=== PATIENT | female | born 1970 | race Caucasian/White ===

== ENCOUNTER 2023-02-09 00:39 | Emergency (ER) | payer SELFPAY ==
[2023-02-09] MEDS ORDERED: predniSONE 20 MG TAB ONE (01:39)
[2023-02-09] MEDS ORDERED: Ketorolac Tromethamine 30 MG/ML VIAL ONE (01:39)
== END 2023-02-09 03:10 | disposition home or self-care (01) ==
LOC: CSHERS 00:39
DX: M54.9 Dorsalgia, unspecified (principal); G89.29 Other chronic pain; I10 Essential (primary) hypertension
CPT/HCPCS: 72072; 72100; 93005; 96374; J1885; J7512

== ENCOUNTER 2023-10-01 23:10 | Inpatient (IN) | payer OTHER, SELFPAY ==
[2023-10-01] MEDS ORDERED: Nitroglycerin 0.4 MG TAB 1 EACH ONE (23:34)
[2023-10-01] MEDS ORDERED: Aspirin 81 mg Enteric Coated Tablet ONE (23:34)
[2023-10-01 23:54] LABS: Hemoglobin 15.2 g/dL (12.0-15.5); Mean Corpuscular HGB CONC 36.2 g/dL (32.0-36.0); Mean Corpuscular Hemoglobin 31.2 pg (27.0-33.0); Mean Corpuscular Volume 86.2 fL (81.6-98.3); Mean Platelet Volume 9.7 fL (7.4-10.4); Platelet Count 224 10x3/uL (150-450); RBC Distribution Width 11.5 % (11.5-14.5); Red Blood Cell (RBC) Count 4.87 10x6/uL (3.90-5.03); White Blood Cell (WBC) Count 6.3 10x3/uL (3.5-10.5)
[2023-10-01 23:55] LABS: MDiff Complete? YES
[2023-10-01 23:56] LABS: ALT (SGPT) 24 U/L (8-55); AST (SGOT) 26 U/L (5-34); Albumin 3.4 g/dL (3.5-5.0); Alkaline Phosphatase 120 U/L (40-110); Anion Gap 13 mmol/L (10-20); BUN (Urea Nitrogen) 14 mg/dL (9.8-20.1); Bilirubin, Total 0.4 mg/dL (0.2-1.2); Calc. Creatinine Clearance 0 mL/min (70-130); Calcium 9.5 mg/dL (7.8-10.44); Carbon Dioxide 23 mmol/L (22-29); Chloride 100 mmol/L (98-107); Estimated GFR 61; Globulin 4.2 g/dL (2.4-3.5); Potassium 4.3 mmol/L (3.5-5.1); Protein, Total 7.6 g/dL (6.0-8.3); Sodium 132 mmol/L (136-145)
[2023-10-01 23:59] LABS: Glucose 560 mg/dL (70-105)
[2023-10-02 00:03] LABS: Troponin I Less than 0.010 ng/mL (< 0.028)
[2023-10-02] MEDS ORDERED: Insulin Regular, Human 100 UNIT/ML 10 ML VIAL ONE (00:13)
[2023-10-02 00:18] LABS: Eosinophils 1 % (0-10); Lymphocytes 57 % (21-51); Monocytes 5 % (0-10); Neutrophil 35 % (42-75); Reactive Lymphocytes 2 % (0-10)
[2023-10-02 00:21] LABS: Platelet Adequacy Comment Appears Adequate; RBC Morph Comment Within Normal Limits
[2023-10-02 00:31] LABS: Reflex for Review?? YES
[2023-10-02 03:18] LABS: Troponin I Less than 0.010 ng/mL (< 0.028)
[2023-10-02] MEDS ORDERED: Nitroglycerin 0.4 MG TAB (25 Tab Bottle) SL PRN (05:13)
[2023-10-02 05:38] LABS: Troponin I Less than 0.010 ng/mL (< 0.028)
[2023-10-02 05:44] LABS: Cardiac Risk 6.6 (Less than 4.5); Cholesterol 231 mg/dl (< 200 Desired); HDL Cholesterol 35 mg/dL (>60 Neg Risk); LDL Cholesterol, Calculated 129 mg/dL; Magnesium 1.9 mg/dL (1.6-2.6); Triglycerides 337 mg/dL (Less than 150)
[2023-10-02] MEDS ORDERED: Aspirin Chewable 81 MG TAB ONE (07:32)
[2023-10-02] MEDS ORDERED: Enoxaparin 40 MG (0.4 mL) SYRINGE ONE (07:32)
[2023-10-02] MEDS ORDERED: metFORMIN 500 MG TAB ONE (07:33)
[2023-10-02] MEDS: metFORMIN 500 MG TAB PO SCH (08:05)
[2023-10-02] MEDS: Aspirin Chewable 81 MG TAB PO SCH (08:05)
[2023-10-02] MEDS: Empagliflozin 10 MG TAB PO SCH (08:06)
[2023-10-02] MEDS: Lisinopril 5 MG TAB PO SCH (08:06)
[2023-10-02] MEDS: Enoxaparin 40 MG (0.4 mL) SYRINGE SC SCH (08:06)
[2023-10-02 09:54] VITALS: BMI 28.1
[2023-10-02] MEDS ORDERED: Dextrose 5% in Water 1,000 ML IV PRN (10:55)
[2023-10-02] MEDS ORDERED: Glucagon 1 MG/ML KIT IM PRN (10:55)
[2023-10-02] MEDS ORDERED: HumaLOG 300 UNITS/3 ML VIAL SC PRN ×2 (10:55)
[2023-10-02] MEDS ORDERED: Dextrose 50% Abboject 50 ML SYRINGE SLOW IVP PRN (10:55)
[2023-10-02] MEDS: Magnesium Oxide 400 MG TAB PO SCH (11:57)
[2023-10-02] MEDS: Insulin Lispro 100 UNIT/ML 10 ML VIAL SC PRN (12:31)
[2023-10-02 16:50] LABS: Hemoglobin A1c 12.8 % (4.0-6.0)
[2023-10-02] MEDS: Lantus 1000 UNITS/10 ML VIAL SC SCH (21:54)
[2023-10-02] MEDS: Atorvastatin Calcium 40 MG TAB PO SCH (21:54)
[2023-10-03 05:04] LABS: Anion Gap 17 mmol/L (10-20); BUN (Urea Nitrogen) 14 mg/dL (9.8-20.1); Calc. Creatinine Clearance 114 mL/min (70-130); Calcium 9.1 mg/dL (7.8-10.44); Carbon Dioxide 17 mmol/L (22-29); Chloride 105 mmol/L (98-107); Estimated GFR 95; Glucose 206 mg/dL (70-105); Potassium 3.9 mmol/L (3.5-5.1); Sodium 135 mmol/L (136-145)
[2023-10-03 05:25] LABS: Hematocrit 42.1 % (34.9-44.5); Hemoglobin 15.1 g/dL (12.0-15.5); Mean Corpuscular HGB CONC 35.9 g/dL (32.0-36.0); Mean Corpuscular Hemoglobin 31.3 pg (27.0-33.0); Mean Corpuscular Volume 87.2 fL (81.6-98.3); Mean Platelet Volume 9.9 fL (7.4-10.4); Platelet Count 211 10x3/uL (150-450); RBC Distribution Width 11.5 % (11.5-14.5); Red Blood Cell (RBC) Count 4.83 10x6/uL (3.90-5.03); White Blood Cell (WBC) Count 6.7 10x3/uL (3.5-10.5)
[2023-10-03 05:26] LABS: MDiff Complete? YES
[2023-10-03 06:02] LABS: Eosinophils 2 % (0-10); Lymphocytes 56 % (21-51); Monocytes 7 % (0-10); Neutrophil 32 % (42-75); Reactive Lymphocytes 3 % (0-10)
[2023-10-03 06:03] LABS: Large Platelets SLIGHT (None Seen); Platelet Adequacy Comment Appears Adequate; RBC Morph Comment Within Normal Limits
[2023-10-03] MEDS: Magnesium Oxide 400 MG TAB PO SCH (09:51)
[2023-10-03 16:55] LABS: Anion Gap 15 mmol/L (10-20); BUN (Urea Nitrogen) 17 mg/dL (9.8-20.1); Calc. Creatinine Clearance 81 mL/min (70-130); Calcium 9.2 mg/dL (7.8-10.44); Carbon Dioxide 24 mmol/L (22-29); Chloride 101 mmol/L (98-107); Estimated GFR 63; Glucose 278 mg/dL (70-105); Potassium 4.4 mmol/L (3.5-5.1); Sodium 136 mmol/L (136-145)
[2023-10-03] MEDS: Acetaminophen 500 MG TAB PO PRN (18:33)
[2023-10-03] MEDS: Insulin Lispro 100 UNIT/ML 10 ML VIAL SC PRN (22:11)
[2023-10-04 06:27] LABS: Anion Gap 19 mmol/L (10-20); BUN (Urea Nitrogen) 16 mg/dL (9.8-20.1); Calc. Creatinine Clearance 103 mL/min (70-130); Calcium 9.1 mg/dL (7.6-10.4); Carbon Dioxide 15 mmol/L (22-29); Chloride 104 mmol/L (98-107); Estimated GFR 84; Glucose 305 mg/dL (70-105); Sodium 134 mmol/L (136-145)
[2023-10-04 06:31] LABS: Hematocrit 43.9 % (34.9-44.5); Mean Corpuscular HGB CONC 36.4 g/dL (32.0-36.0); Mean Corpuscular Hemoglobin 31.6 pg (27.0-33.0); Mean Corpuscular Volume 86.8 fL (81.6-98.3); Mean Platelet Volume 10.8 fL (7.4-10.4); Platelet Count 179 10x3/uL (150-450); RBC Distribution Width 11.5 % (11.5-14.5); Red Blood Cell (RBC) Count 5.06 10x6/uL (3.90-5.03); White Blood Cell (WBC) Count 6.8 10x3/uL (3.5-10.5)
[2023-10-04 06:40] LABS: MDiff Complete? YES
[2023-10-04 06:41] LABS: Eosinophils 2 % (0-10); Lymphocytes 55 % (21-51); Monocytes 2 % (0-10); Neutrophil 40 % (42-75); Platelet Adequacy Comment Appears Adequate; RBC Morph Comment Within Normal Limits; Reflex for Review?? YES; Smudge Cells MODERATE
[2023-10-04] MEDS: Sodium Bicarbonate 100 MEQ in Dextrose 5% in Water 1,000 ML IV SCH (08:30)
[2023-10-04] MEDS ORDERED: Sodium Bicarbonate 150 mEq in Dextrose 5% IV SCH (11:00)
[2023-10-04 15:03] LABS: Anion Gap 17 mmol/L (10-20); BUN (Urea Nitrogen) 15 mg/dL (9.8-20.1); Calc. Creatinine Clearance 92 mL/min (70-130); Calcium 9.2 mg/dL (7.8-10.44); Carbon Dioxide 19 mmol/L (22-29); Chloride 102 mmol/L (98-107); Estimated GFR 74; Glucose 370 mg/dL (70-105); Potassium 4.3 mmol/L (3.5-5.1); Sodium 134 mmol/L (136-145)
[2023-10-04 15:07] LABS: Critical Call Chem-Lactate NUR.TF1@1500; Lactic Acid 4.4 mmol/L (0.5-2.2)
[2023-10-04] MEDS: Sodium Chloride 0.9% 1,000 ML IV SCH (15:30)
[2023-10-04 16:40] LABS: Acetaminophen Less than 10 mcg/mL (10.0-30.0); Alcohol Less than 10.0 mg/dL (Less than 10); CK (CPK) 76 U/L (29-168); Salicylate Less than 8.0 mg/dL (15.0-30.0)
[2023-10-04] MEDS: Lantus 1000 UNITS/10 ML VIAL SC SCH (20:45)
[2023-10-04 21:23] LABS: Anion Gap 17 mmol/L (10-20); BUN (Urea Nitrogen) 15 mg/dL (9.8-20.1); Calc. Creatinine Clearance 78 mL/min (70-130); Calcium 9.1 mg/dL (7.8-10.44); Carbon Dioxide 21 mmol/L (22-29); Chloride 101 mmol/L (98-107); Estimated GFR 61; Glucose 325 mg/dL (70-105); Potassium 3.9 mmol/L (3.5-5.1); Sodium 135 mmol/L (136-145)
[2023-10-04] MEDS: Insulin Regular, Human 100 UNIT/ML 10 ML VIAL IVP SCH (22:39)
[2023-10-05] MEDS: Insulin Regular, Human 100 UNIT/ML 10 ML VIAL IVP SCH (01:01)
[2023-10-05 01:09] LABS: Amphetamine Not Detected (NotDetected); Barbiturates Screen Not Detected (NotDetected); Benzodiazepine Screen Not Detected (NotDetected); Cocaine Metabolite Screen Not Detected (NotDetected); Methadone Not Detected (NotDetected); Methamphetamine Not Detected (NotDetected); Opiate Screen Not Detected (NotDetected); Oxycodone Screen Not Detected (NotDetected); Phencyclidine (PCP) Not Detected (NotDetected); THC/Cannabinoid Screen Not Detected (NotDetected); Tricyclic Screen Not Detected (NotDetected)
[2023-10-05 01:53] LABS: Anion Gap 16 mmol/L (10-20); BUN (Urea Nitrogen) 12 mg/dL (9.8-20.1); Calc. Creatinine Clearance 89 mL/min (70-130); Calcium 8.7 mg/dL (7.8-10.44); Carbon Dioxide 21 mmol/L (22-29); Chloride 102 mmol/L (98-107); Estimated GFR 71; Glucose 398 mg/dL (70-105); Potassium 3.8 mmol/L (3.5-5.1); Sodium 135 mmol/L (136-145)
[2023-10-05 03:08] LABS: Anion Gap 14 mmol/L (10-20); BUN (Urea Nitrogen) 12 mg/dL (9.8-20.1); Calc. Creatinine Clearance 101 mL/min (70-130); Calcium 8.8 mg/dL (7.8-10.44); Carbon Dioxide 22 mmol/L (22-29); Chloride 104 mmol/L (98-107); Estimated GFR 83; Glucose 270 mg/dL (70-105); Potassium 3.6 mmol/L (3.5-5.1); Sodium 136 mmol/L (136-145)
[2023-10-05 04:41] LABS: Hematocrit 40.4 % (34.9-44.5); Hemoglobin 14.6 g/dL (12.0-15.5); Mean Corpuscular HGB CONC 36.1 g/dL (32.0-36.0); Mean Corpuscular Hemoglobin 31.3 pg (27.0-33.0); Mean Corpuscular Volume 86.5 fL (81.6-98.3); Mean Platelet Volume 9.7 fL (7.4-10.4); Platelet Count 226 10x3/uL (150-450); RBC Distribution Width 11.6 % (11.5-14.5); Red Blood Cell (RBC) Count 4.67 10x6/uL (3.90-5.03); White Blood Cell (WBC) Count 6.8 10x3/uL (3.5-10.5)
[2023-10-05 04:52] LABS: Anion Gap 13 mmol/L (10-20); BUN (Urea Nitrogen) 11 mg/dL (9.8-20.1); Calc. Creatinine Clearance 111 mL/min (70-130); Calcium 8.4 mg/dL (7.8-10.44); Carbon Dioxide 22 mmol/L (22-29); Chloride 107 mmol/L (98-107); Estimated GFR 92; Glucose 169 mg/dL (70-105); Potassium 3.5 mmol/L (3.5-5.1); Sodium 138 mmol/L (136-145)
[2023-10-05 05:36] LABS: MDiff Complete? YES
[2023-10-05 07:20] LABS: Eosinophils 2 % (0-10); Lymphocytes 68 % (21-51); Monocytes 6 % (0-10); Neutrophil 18 % (42-75); Reactive Lymphocytes 4 % (0-10)
[2023-10-05 07:23] LABS: Platelet Adequacy Comment Appears Adequate; RBC Morph Comment Within Normal Limits
[2023-10-05] MEDS: Potassium Chloride 20 MEQ TAB PO SCH (08:27)
[2023-10-05] MEDS: Lantus 1000 UNITS/10 ML VIAL SC SCH ×2 (08:33→21:16)
[2023-10-05] MEDS ORDERED: Lantus 1000 UNITS/10 ML VIAL SC SCH ×3 (09:00→21:00)
[2023-10-05] MEDS: SUMAtriptan Succinate 6 MG/0.5 ML VIAL SC PRN (15:01)
[2023-10-06 04:38] LABS: Anion Gap 13 mmol/L (10-20); BUN (Urea Nitrogen) 11 mg/dL (9.8-20.1); Calc. Creatinine Clearance 117 mL/min (70-130); Calcium 8.9 mg/dL (7.8-10.44); Carbon Dioxide 20 mmol/L (22-29); Chloride 108 mmol/L (98-107); Estimated GFR 99; Glucose 166 mg/dL (70-105); Potassium 3.9 mmol/L (3.5-5.1); Sodium 137 mmol/L (136-145)
[2023-10-06 04:39] LABS: #Basophils 0.09 10x3/uL (0.0-0.2); #Eosinphils 0.18 10x3/uL (0.0-0.5); #Monocytes 0.43 10x3/uL (0.0-1.1); #Neutrophils 2.35 10x3/uL (1.5-8.4); %Basophils 1.3 % (0.0-2.0); %Eosinophils 2.5 % (0.0-6.0); %Lymphocytes 57.5 % (18.0-47.0); %Neutrophils 32.6 % (40.0-75.0); Hematocrit 40.8 % (34.9-44.5); Hemoglobin 14.7 g/dL (12.0-15.5); Mean Corpuscular Hemoglobin 31.5 pg (27.0-33.0); Mean Corpuscular Volume 87.4 fL (81.6-98.3); Mean Platelet Volume 9.9 fL (7.4-10.4); Platelet Count 221 10x3/uL (150-450); RBC Distribution Width 11.5 % (11.5-14.5); Red Blood Cell (RBC) Count 4.67 10x6/uL (3.90-5.03); White Blood Cell (WBC) Count 7.2 10x3/uL (3.5-10.5)
[2023-10-06 09:43] VITALS: BP 142/73; TEMP 97.9
== END 2023-10-06 11:58 | disposition home or self-care (01) | DRG 313 ==
LOC: CSHERS 23:10 → CSHERHOLD 10-02 03:40 → CSHTELE 10-02 08:16 → OBSVTOIN 10-03 16:00 → CSHTELE 10-04 19:13
PROVIDERS: ADMIT Family Medicine; ATTEND Hospitalist
DX: R07.89 Other chest pain (principal); E87.20 Acidosis, unspecified; I10 Essential (primary) hypertension; Z79.82 Long term (current) use of aspirin; Z79.899 Other long term (current) drug therapy; Z79.4 Long term (current) use of insulin; E78.5 Hyperlipidemia, unspecified; Z90.49 Acquired absence of other specified parts of digestive tract; Z98.51 Tubal ligation status; Z98.890 Other specified postprocedural states; E11.65 Type 2 diabetes mellitus with hyperglycemia; Z91.148 Patient's other noncompliance with medication regimen for other reason
CPT/HCPCS: 36415; 36416; 71045; 80048; 80053; 80061; 80143; 80179; 80306; 80307; 82010; 82550; 82693; 83036; 83605; 83735; 83880; 84484; 85025; 85060; 85379; 93005; 93306; 96372; 96374; G0378; J1650; J1815; J3030; J7050; J7070